=== PATIENT | male | born 1965 | race Caucasian/White ===

== ENCOUNTER 2017-10-12 08:08 | Inpatient (IN) | payer OTHER ==
[2017-10-12] VITALS (8 sets, daily range): BP systolic 141–188; BP diastolic 74–98
[~2017-10-12] VITALS: Ht 177.8 cm; Wt 81.6 kg
[~2017-10-12 08:08] MED LIST: ALPRAZOLAM0.5 M4 PO; ATIVAN1 M1 PO; DOXYCYCLINE HY100 M2 PO; FOLIC ACID1 M1 PO; NALTREXONE HCL50 M1 PO; ONE DAILY MULT1 EAC2 PO; VITAMIN B-1100 MG PO
--- NOTE | 2017-10-12 08:37 | ED PSYCHIATRIC COMPLAINT ---
History of Present Illness General Chief Complaint: General Adult Stated Complaint: XANAX WITHDRAWAL, LOST MEDS Source: patient, old records Exam Limitations: no limitations Vital Signs & Intake/Output Vital Signs & Intake/Output Vital Signs Date Time Temp Pulse Resp B/P B/P Pulse O2 O2 Flow FiO2 Mean Ox Delivery Rate 10/12 1435 90 18 150/84 10/12 1430 90 18 150/84 96 Room Air 10/12 1318 96 18 155/83 10/12 1314 102 16 155/83 98 Room Air 10/12 1158 98 Room Air 10/12 1148 97.0 96 18 158/74 10/12 1147 97.0 96 18 158/79 97 Room Air 10/12 1045 98.0 74 18 154/74 99 Room Air 10/12 1044 98.3 87 18 154/79 10/12 0840 95.9 104 20 188/98 10/12 0826 99 Room Air 10/12 0811 95.9 104 20 188/98 97 Allergies Coded Allergies: No Known Allergies (05/12/17) Reconcile Medications Alprazolam 0.5 MG TABLET 1 TAB PO TID ANXIETY (Reported) Triage Note: PT COMES TO ER REQUESTING ETOH DETOX, STATES THAT HIS LAST DRINK WAS YESTERDAY , DRINKS BEER, STATES THAT HE HAS HISTORY OF WITHDRAWAL SEIZURES. ALSO STATES THAT HE NEEDS XANAX, HIS WAS LOST AT HOTEL OVER A WEEK AGO, TOOK 0.5 MG TID AND HAS NOT HAD IN OVER A WEEK, STATES THAT HE CALLED HIS PMD ABOUT XANAX AND HAD AN APPOINTMENT BUT COULDN'T MAKE IT THERE. DENIES SI/HI. Triage Nurses Notes Reviewed? yes Onset: Gradual Duration: day(s): Timing: recent history Severity: moderate HPI: 52-year-old male with history of anxiety and panic attacks, alcoholism presents to emergency department complaining of Xanax withdrawal. Patient states that for the past week he's been living in a hotel, he has not had any of his Which he typically takes daily. Patient states that his headaches was left in a storage unit she did not have access to and has been without this medication for 1 week. Because he was going through Xanax was withdrawal the patient self medicated with alcohol. Patient states that he typically drinks 30 beers per day. Yesterday the patient drank a few beers, his last drink was last night. Patient states he has been through alcohol detox in the past, he has required hospital admission for alcohol withdrawal. Patient states he has had "seizures of his hands" with hands lockup however no grand mal seizures that he knows of. Patient reports current chest pressure which she associates with his panic attack symptoms. Patient denies suicidal ideation, illicit drug use, recent fevers, chills. (July Lugo) Past History Travel History Traveled to [place] past 21 day No Medical History Any Pertinent Medical History? see below for history Neurological: NONE EENT: NONE Cardiovascular: NONE Respiratory: NONE Gastrointestinal: NONE Hepatic: NONE Renal: NONE Musculoskeletal: NONE Psychiatric: alcohol dependence, anxiety Endocrine: NONE Blood Disorders: NONE Cancer(s): NONE Other Medical Hx: Acne History of MRSA: No History of VRE: No History of CDIFF: No Surgical History Surgical History: none Psychosocial History Who do you live with Mother What is your primary language Bahamian Tobacco Use: Never used ETOH Use: alcoholic Illicit Drug Use: denies illicit drug use Family History Hx Contributory? No (July Lugo) Review of Systems Review of Systems Constitutional: Reports: no symptoms. EENTM: Reports: no symptoms. Respiratory: Reports: no symptoms. Cardiovascular: Reports: see HPI. GI: Reports: no symptoms. Genitourinary: Reports: no symptoms. Musculoskeletal: Reports: no symptoms. Skin: Reports: no symptoms. Neurological/Psychological: Reports: see HPI. Hematologic/Endocrine: Reports: no symptoms. Immunologic/Allergic: Reports: no symptoms. All Other Systems: Reviewed and Negative (July Lugo) Physical Exam Physical Exam General Appearance: well developed/nourished, no apparent distress, alert, awake Head: atraumatic, normal appearance Eyes: Bilateral: normal appearance. Ears, Nose, Throat: hearing grossly normal Neck: normal inspection, supple, full range of motion Respiratory: normal breath sounds, no respiratory distress, lungs clear Cardiovascular: tachycardia Gastrointestinal: normal bowel sounds, soft, non-tender, no organomegaly Extremities: normal range of motion Neurological/Psychiatric: awake, alert, anxious, tremor of upper extremities Appearance/Memory/Insight: appropriate appearance, appropriate insight Behavoir/Eye Contact/Speech: cooperative, normal speech, good eye contact Thoughts/Hallucinations: normal thought pattern, no apparent hallucination Skin: intact, normal color, warm/dry SAD PERSONS Done? patient not suicidal ([place] SHAW,July Corral) Progress Differential Diagnosis: drug intoxication, drug overdose, drug withdrawal, electrolyte abnormality, ACS Plan of Care: Orders Procedure Date/time Status PHOSPHORUS 10/13 0600 Active MAGNESIUM 10/13 0600 Active HEPATIC FUNCTION PANEL 10/13 0600 Active BASIC ELECTROLYTES PLUS BUN&CR 10/13 0600 Active Regular Diet 10/12 L Complete Regular Diet 10/12 D Active Pathway - chart 10/12 1325 Active Pathway - chart 10/12 1320 Active Patient Data 10/12 1310 Active ED Holding Orders 10/12 1252 Active Admit to inpatient 10/12 1252 Active Vital Signs 10/12 1252 Active Code Status 10/12 1252 Active PHOSPHORUS 10/12 0857 Complete CIWA 10/12 0836 Active URINE DRUG SCREEN FOR ER ONLY 10/12 0836 Complete TROPONIN LEVEL 10/12 0836 Complete MAGNESIUM 10/12 0836 Complete ETHANOL 10/12 0836 Complete COMPREHENSIVE METABOLIC PANEL 10/12 0836 Complete CBC WITHOUT DIFFERENTIAL 10/12 0836 Complete EKG 10/12 0836 Active Intake & Output 10/12 0826 Active House Staff 10/12 UNK Active Lab Add-on Test 10/12 UNK Active VTE Mechanical Prophylaxis 10/12 UNK Active SOCIAL WORK CONSULT 10/12 UNK Active Current Medications Sig/Jackelyn Start time Last Medication Dose Stop Time Status Admin Enoxaparin Sodium 40 MG DAILY 10/13 1000 AC (Lovenox) Folic Acid 1 MG DAILY 10/13 1000 AC (Folic Acid) Multivitamins 1 TAB DAILY 10/13 1000 AC (Theragran Vitamins) Thiamine HCl 100 MG DAILY 10/13 1000 AC (Vitamin B1) Lorazepam 2 MG Q6 10/12 1800 AC (Ativan) Acetaminophen 650 MG Q6P PRN 10/12 1330 AC (Tylenol) Acetaminophen 1,000 MG Q6P PRN 10/12 1330 AC (Ofirmev) Cyanocobalamin/ 1 BAG ONCE ONE 10/12 1330 AC 10/12 Thiamine/Pyridoxine 10/12 2129 1530 (Vitamin in I.V.) Dextrose/Water 1,000 ML (D5W 1000) Hydromorphone HCl 0.4 MG Q6P PRN 10/12 1330 AC (Dilaudid) Lorazepam 2 MG Q6H 10/12 1330 CAN (Ativan) Lorazepam 0 Q1P PRN 10/12 1330 AC (Ativan) Magnesium Sulfate 1 GM Q2H 10/12 1315 AC 10/12 (Mag Sulfate in D5) 10/12 1714 1415 Dextrose/Water 100 ML (D5W) Magnesium Sulfate 1 GM Q4H 10/12 1300 CAN (Mag Sulfate in D5) 10/12 2059 Dextrose/Water 100 ML (D5W) Laboratory Tests 10/12/17 1127: Urine Opiates Screen < 100.00, Methadone Screen < 40, Barbiturate Screen < 60, Ur Phencyclidine Scrn < 6.00, Amphetamines Screen < 100, U Benzodiazepines Scrn < 85, Urine Cocaine Screen < 50, Urine Cannabis Screen 7.00 10/12/17 0857: Anion Gap 15, Estimated GFR > 60, BUN/Creatinine Ratio 7.1, Glucose 133 H, Calcium 9.8, Phosphorus 1.9 L, Magnesium 1.4 L, Total Bilirubin 2.3 H, AST 183 H, ALT 211 H, Alkaline Phosphatase 132 H, Troponin I < 0.01, Total Protein 8.2, Albumin 5.0, Globulin 3.2, Albumin/Globulin Ratio 1.6, CBC w Diff NO MAN DIFF REQ, RBC 5.04, MCV 97.2 H, MCH 33.8 H, RDW 15.3 H, MPV 8.1, Gran % 67.4, Lymphocytes % 19.2 L, Monocytes % 12.7 H, Eosinophils % 0.4, Basophils % 0.3, Absolute Granulocytes 3.3, Absolute Lymphocytes 0.9 L, Absolute Monocytes 0.6, Absolute Eosinophils 0, Absolute Basophils 0, PUBS MCHC 34.8, Serum Alcohol < 10.0 Patient with tremors on physical exam. He appears anxious. [facility] core of 19. Patient medicated with IV and PO Ativan. Given patient's insurance he requires prior authorization for hospital admission. Patient's EKG is in sinus rhythm, no acute ischemic changes, troponin negative. Low suspicion for acute coronary syndrome at this time. Patient reports resolution of chest pain following Ativan. Hypomagnesemia and hypokalemia and then blood work, Mg and K given here in the ED. Dr. Rehman discussed this patient with case management. Case management will obtain prior authorization from Medicaid prior to this patient's admission for alcohol withdrawal. 12:52 - Patient approved for admission via case management Dr. Rehman spoke with hospitalist regarding this patient's general medicine admission for alcohol detox. Patient is not a candidate for outpatient detox given elevated CIWA score. He requires inpatient hospital setting care. Initial ED EKG: sinus rhythm @73bpm, nonspecific ST changes (July Lugo) Departure Departure Disposition: STILL A PATIENT Condition: Stable Clinical Impression Primary Impression: Alcohol withdrawal Qualifiers: Complication of substance-induced condition: with unspecified complication Qualified Code: F10.239 - Alcohol dependence with withdrawal, unspecified Secondary Impressions: Alcoholism, Hypokalemia, Hypomagnesemia Referrals: Deo Solomon MD (PCP/Family) Departure Forms: Customer Survey General Discharge Information (July Lugo) Admission Note Spoke With: Castillo Foster MD Documentation of Exam: Documentation of any treatments & extenuating circumstances including Concerns Regarding Discharge (functional status, medication knowledge or non-compliance, living conditions, etc.) that warrant an admission rather than observation: [ Patient to be admitted medically for alcohol dependency and acute withdrawal. We'll need to follow the CIWA score closely and give Ativan as needed. Patient will need a social work consult for continued alcohol treatment upon discharge. Patient is at high risk of having a withdrawal seizure at this point.] PA/PULMONARY CARE NURSE Co-Sign Statement Statement: ED Attending supervision documentation- [X] I saw and evaluated the patient. I have also reviewed all the pertinent lab results and diagnostic results. I agree with the findings and the plan of care as documented in the PA's/PULMONARY CARE NURSE's documentation. [X] I have reviewed the ED Record and agree with the PA's/PULMONARY CARE NURSE's documentation. [] Additions or exceptions (if any) to the PAs/PULMONARY CARE NURSE's note and plan are summarized below: [See above note] (Sherie BRADEN,Conrado Alba)
[2017-10-12 09:12] LABS: ABSOLUTE BASOPHIL COUNT 0 /CUMM (0.0-0.2); ABSOLUTE EOSINOPHIL COUNT 0 /CUMM (0.0-0.7); ABSOLUTE GRANULOCYTE CT 3.3 /CUMM (1.4-6.5); ABSOLUTE LYMPH COUNT 0.9 /CUMM (1.2-3.4); ABSOLUTE MONOCYTE COUNT 0.6 /CUMM (0.10-0.60); BASOPHIL % 0.3 % (0.0-2.0); EOSINOPHIL % 0.4 % (0-5); GRANULOCYTE % 67.4 % (42.2-75.2); MEAN CORPUSCULAR HGB 33.8 PG (27.0-31.0); MEAN CORPUSCULAR HGB CONC 34.8 G/DL (33.0-37.0); MEAN CORPUSCULAR VOLUME 97.2 FL (80.0-94.0); MEAN PLATELET VOLUME 8.1 FL (7.4-10.4); PLATELET COUNT 192 /CUMM (130-400); RBC DISTRIBUTION WIDTH 15.3 % (11.5-14.5); RED BLOOD CELL CT 5.04 /CUMM (4.70-6.10); WHITE BLOOD CELL COUNT 4.9 /CUMM (4.8-10.8)
--- NOTE | 2017-10-12 13:14 | History & Physical ---
Twyla Pressley 10/12/17 1313: General Information and HPI MD Statement: I have seen and personally examined JESSY VERMA and documented this H&P. The patient is a 52 year old M who presented with a patient stated chief complaint of [Alcohol Withdrawl]. Source of Information: patient Exam Limitations: no limitations History of Present Illness: Mr. Verma is a 52-year-old male with PMH of anxiety/panic attacks, alcoholism presented to [facility] with chief complaint of Xanax withdrawl and alcohol dependence for the past week. Patient stated that he was living in a hotel without access to his daily Xanax for the past week, and he picked up drinking to counter his withdrawl. His daily alcohol consumption was around 30 beers/day. 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 Patient felt withdrawl with symptoms including muscle stiffness/hand tremors, and some chest pressures on/off without pain or SOB. Patient admitted some cough as well. Patient had hx of alcohol detox requiring hospital admission, and had history of some "seizures of his hands" with "lockup" but no grand mal seziure. Patient denied SI/HI. Patient denied past medical history of liver/gallbladder diseases. Patient denied fever/night sweat/weight change/insomnia, dietary/appetite change. Patient denied Palpitation/Abdominal pain, bowel movement/urinary abnormality, or other skin/musculoskeletal/neurological disorders. Allergies/Medications Allergies: Coded Allergies: No Known Allergies (05/12/17) Home Med list Alprazolam 0.5 MG TABLET 1 TAB PO TID ANXIETY (Reported) Past History Travel History Traveled to [place] past 21 day No Medical History Neurological: NONE EENT: NONE Cardiovascular: NONE Respiratory: NONE Gastrointestinal: NONE Hepatic: NONE Renal: NONE Musculoskeletal: NONE Psychiatric: alcohol dependence, anxiety Endocrine: NONE Blood Disorders: NONE Cancer(s): NONE Other Medical Hx: Acne History of MRSA: No History of VRE: No History of CDIFF: No Surgical History Surgical History: none Past Family/Social History Psychosocial History ETOH Use: alcoholic Illicit Drug Use: denies illicit drug use Review of Systems Review of Systems Constitutional: Reports: see HPI. Exam & Diagnostic Data Last 24 Hrs of Vital Signs/I&O Vital Signs Date Time Temp Pulse Resp B/P B/P Pulse O2 O2 Flow FiO2 Mean Ox Delivery Rate 10/12 1158 98 Room Air 10/12 1148 97.0 96 18 158/74 10/12 1147 97.0 96 18 158/79 97 Room Air 10/12 1045 98.0 74 18 154/74 99 Room Air 10/12 1044 98.3 87 18 154/79 10/12 0840 95.9 104 20 188/98 10/12 0826 99 Room Air 10/12 0811 95.9 104 20 188/98 97 Intake & Output 10/12 1600 10/12 0800 10/12 0000 Intake Total 0 Output Total Balance 0 Intake, Oral 0 Patient 81.647 kg Weight Physical Exam General Appearance Alert, Oriented X3, Cooperative, No Acute Distress Skin No Rashes, No Breakdown, No Significant Lesion HEENT Atraumatic, PERRLA, EOMI Neck Supple, No JVD Cardiovascular Regular Rate Lungs Clear to Auscultation, Normal Air Movement Abdomen Normal Bowel Sounds, Soft, No Tenderness, No Hepatospenomegaly Neurological Normal Speech, Strength at 5/5 X4 Ext Extremities No Edema, Normal Pulses, No tremors Last 24 Hrs of Labs/Anam: Laboratory Tests 10/12/17 1127: Urine Opiates Screen < 100.00, Methadone Screen < 40, Barbiturate Screen < 60, Ur Phencyclidine Scrn < 6.00, Amphetamines Screen < 100, U Benzodiazepines Scrn < 85, Urine Cocaine Screen < 50, Urine Cannabis Screen 7.00 10/12/17 0857: Anion Gap 15, Estimated GFR > 60, BUN/Creatinine Ratio 7.1, Glucose 133 H, Calcium 9.8, Phosphorus Pending, Magnesium 1.4 L, Total Bilirubin 2.3 H, AST 183 H, ALT 211 H, Alkaline Phosphatase 132 H, Troponin I < 0.01, Total Protein 8.2, Albumin 5.0, Globulin 3.2, Albumin/Globulin Ratio 1.6, CBC w Diff NO MAN DIFF REQ, RBC 5.04, MCV 97.2 H, MCH 33.8 H, RDW 15.3 H, MPV 8.1, Gran % 67.4, Lymphocytes % 19.2 L, Monocytes % 12.7 H, Eosinophils % 0.4, Basophils % 0.3, Absolute Granulocytes 3.3, Absolute Lymphocytes 0.9 L, Absolute Monocytes 0.6, Absolute Eosinophils 0, Absolute Basophils 0, PUBS MCHC 34.8, Serum Alcohol < 10.0 Assessment/Plan Assessment: Mr. Verma is a 52-year-old male with PMH of anxiety/panic attacks, alcoholism presented to [facility] with chief complaint of Xanax withdrawl and alcohol dependence for the past week. Patient stated that he was living in a hotel without access to his daily Xanax for the past week, and he picked up drinking to counter his withdrawl. His daily alcohol consumption was around 30 beers/day. 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 Patient felt withdrawl with symptoms including muscle stiffness/hand tremors, and some chest pressures on/off without pain or SOB. Patient admitted some cough as well. During our clinical interaction, patient felt generally improved from alcohol withdrawl symptoms and denied any hand tremors/muscle stiffness/Nausea, admitted some mild chest pressure but otherwise no specific complaint. ER Course: Objective Vitals: Stable afebrile, with BP 155/83, Physical exam -Gen.: AO x3, cooperative, no distress, -HEENT: NCAT, PERRL, EOMI, anicteric sclera, moist mucous membranes -Neck: Supple, no JVD, trachea midline, mild accessory respiratory muscle use -Cardio: Normal S1/S2 without significant murmurs/gallops/rubs -Pulmonary: grossly normal air movement w/ clear auscultation -Abdomen: Soft, nontender, nondistended, bowel sounds intact -Extremity: Normal pulses/capillary refill, no cyanosis/clubbing/edema, no hand tremor on presentation Labs/imaging/EKG/interventions -CBC: WNL -BMP: Na 136, K3.4, Cr 0.7, Glu 133, AST/ALT: 183/211, AlkPhos 132, phos 1.9, mag 1.4otherwise unremarkable -Misc: Troponin -ve. Serum alcohol -ve -EKG: Normal sinus rhythm without significant ST-T abnormalities. -Interventions in ER: K-dur Zofran Ativan 2mg PO x1, IV x 1 CIWA on admission was 19 -> 5 -> 4 -> 1 Problem list #Alcohol withdrawal #Transaminitis likely 2/2 alcohol consumption #Hypokalemia/Hypophosphatemia/Hypomagnesemia 2/2 alcohol consumption Plan - Admit to general medicine - Replete K, Mg, BEP daily - Ativan PO 2mg q6 + CIWA protocol - Thiamine/B12/Folic acid supplements - Pain control w/ tylenol/dilaudid, if needed. DVT prophylaxis Lovenox + ALPS Regular Diet Full Code As Ranked By This Provider Problem List: 1. Alcohol withdrawal syndrome Qualifiers Complication of substance-induced condition: with unspecified complication Qualified Code: F10.239 - Alcohol dependence with withdrawal, unspecified 2. Hypokalemia Core Measures/Misc (06/25) Acute Coronary Syndrome ACS Diagnosis: No Congestive Heart Failure Congestive Heart Failure Diagnosis No Cerebrovascular Accident CVA/TIA Diagnosis: No VTE (View Protocol) VTE Risk Factors Age>40 No Mechanical VTE Prophylaxis d/t N/A MechProphylax Ordered No VTE Pharm Prophylaxis d/t NA PharmProphylax ordered Sepsis (View protocol) Sepsis Present: No CarlotaJohn 10/12/17 1426: Attending MD Review Statement Attending Statement Attending MD Statement: examined this patient, discuss w/resident/PA/FLORAL DEPARTMENT SPECIALIST, agreed w/resident/PA/FLORAL DEPARTMENT SPECIALIST, discussed with family, reviewed EMR data (avail), discussed with nursing, discussed with case mgmt, reviewed images, amended to note Attending Assessment/Plan: 52-year-old male with history of anxiety and panic attacks, alcoholism presents to emergency department complaining of Xanax withdrawal. Patient poor historian, appears to have tremors. Patient is admit to inpatient medical services for alcohol withdrawal. LUKAS <10. Utox negative. Patient has hypokalemia and need replacement and recheck electrolytes. Start CIWA protocol and Ativan as per CIWA. Thiamine and folic acid daily. Alcohol abuse and dependence. Nicotine dependence- smokes cigars, smoking cessation advise. Angus Casey 10/12/17 1515: Resident Review Statement Resident Statement: examined this patient, discussed with software engineer intern, agreed with software engineer intern, discussed with family, discussed with case mgmt, reviewed images, amended to note Other Findings: is 52-year-old male with past medical history of alcohol dependence, anxiety, multiple admissions for alcohol detox presented to emergency department with symptoms of alcohol withdrawal and he was requesting detox. Patient reports that he has been drinking beer heavily every day up to 24 beer per day, with sometimes 1 shot of vodka, last drink was yesterday. He also not on his medication Xanax for the last week, he came into emergency department with shakiness, heart racing, sweating, twitching movement of his right arm, no seizure and no loss of consciousness. Assessment: #Alcohol withdrawal #Anxiety Plan: - Admit to general medicine - Ativan 1 mg by mouth 8 hours - When necessary Ativan according to CIWA score - Gentle hydration - By mouth thiamine and folic acid - Will check CBC, BMP, magnesium, phosphorus - daycare worker consult DVT prophylaxis with SCDs and Lovenox He is a full code
[2017-10-13] VITALS (9 sets, daily range): BP systolic 129–157; BP diastolic 64–90
--- NOTE | 2017-10-13 08:41 | PN- Housestaff ---
HuanTwyla 10/13/17 0839: Subjective Follow-up For: Alcohol Detox Subjective: No overnight event. Patient felt hand tremors again overnight however not much agitation. Patient felt cold with only 1 blanket. Review of Systems Constitutional: Reports: see HPI. Objective Last 24 Hrs of Vital Signs/I&O Vital Signs Date Time Temp Pulse Resp B/P B/P Pulse O2 O2 Flow FiO2 Mean Ox Delivery Rate 10/13 817 97.7 82 18 147/71 10/13 0817 97.7 82 18 147/71 98 Room Air 10/13 0607 97.5 75 18 131/71 98 Room Air / 0532 98.1 88 18 157/79 / 0532 98.1 88 18 157/79 98 Room Air / 0340 97.8 91 18 157/78 / 0340 97.8 91 18 157/78 100 Room Air / 0140 97.4 78 18 139/86 /05 0140 97.4 78 18 139/86 99 Room Air / 2311 98.8 76 18 141/87 98 Room Air / 2310 98.8 76 18 141/87 /2007 98.5 101 20 159/82 01/04 1935 98.5 101 19 159/82 97 Room Air / 1801 158/74 /04 1712 98.0 97 19 152/78 99 Room Air / 1435 90 18 150/84 /04 1430 90 18 150/84 96 Room Air / 1318 96 18 155/83 /04 1314 102 16 155/83 98 Room Air / 1158 98 Room Air / 1148 97.0 96 18 158/74 /04 1147 97.0 96 18 158/79 97 Room Air / 1045 98.0 74 18 154/74 99 Room Air / 1044 98.3 87 18 154/79 / 0840 95.9 104 20 188/98 Physical Exam General Appearance: Alert, Oriented X3, Cooperative, No Acute Distress Cardiovascular: Regular Rate Lungs: Clear to Auscultation, Normal Air Movement Abdomen: Normal Bowel Sounds, Soft, No Tenderness Neurological: Normal Speech, Strength at 5/5 X4 Ext Extremities: No Edema, Normal Pulses Current Medications: Current Medications Sig/Jackelyn Start time Last Medication Dose Route Stop Time Status Admin Acetaminophen 650 MG Q6P PRN 10/12 1330 AC PO Acetaminophen 1,000 MG Q6P PRN 10/12 1330 AC IV Cyanocobalamin/ 1 BAG ONCE ONE 10/12 1330 DC 10/12 Thiamine/Pyridoxine IV 10/12 2129 1530 Dextrose/Water 1,000 ML Enoxaparin Sodium 40 MG DAILY 10/13 1000 AC SC Folic Acid 1 MG DAILY 10/13 1000 AC PO Hydromorphone HCl 0.4 MG Q6P PRN 10/12 1330 AC IV Lorazepam 0 .STK-MED ONE 10/13 0545 DC PO Lorazepam 0 .STK-MED ONE 10/12 2306 DC PO Lorazepam 0 .STK-MED ONE 10/12 202 DC .ROUTE Lorazepam 0 .STK-MED ONE 10/12 1807 DC PO Lorazepam 2 MG Q6 10/12 1800 AC 10/13 PO 0543 Lorazepam 2 MG Q6H 10/12 1330 CAN IV Lorazepam 0 Q1P PRN 10/12 1330 AC 10/12 IV 2007 Lorazepam 2 MG ONE ONE 10/12 0900 DC 10/12 IV 10/12 0901 0853 Lorazepam 2 MG ONCE ONE 10/12 0900 DC 10/12 PO 10/12 0901 0853 Lorazepam 0 .STK-MED ONE 10/12 0852 DC PO Lorazepam 0 .STK-MED ONE 10/12 0852 DC .ROUTE Magnesium Sulfate 1 GM Q2H 10/12 1315 DC 10/12 Dextrose/Water 100 ML IV 10/12 1714 1415 Magnesium Sulfate 0 .STK-MED ONE 10/12 1304 DC .ROUTE Magnesium Sulfate 1 GM Q4H 10/12 1300 CAN Dextrose/Water 100 ML IV 10/12 2059 Multivitamins 1 TAB DAILY 10/13 1000 AC PO Ondansetron HCl 4 MG ONCE ONE 10/12 0900 DC IV 10/12 0901 Phosphate 250 MG PC AND AT BEDTIME 10/12 2100 AC 10/12 PO 2309 Potassium Chloride 0 .STK-MED ONE 10/13 0757 DC PO Potassium Chloride 40 MEQ ONCE ONE 10/13 0715 DC 10/13 PO 10/13 0716 0804 Potassium Chloride 0 .STK-MED ONE 10/12 2305 DC PO Potassium Chloride 20 MEQ ONCE ONE 10/12 1944 DC 10/12 PO 10/12 194 2309 Potassium Chloride 0 .STK-MED ONE 10/12 1304 DC PO Potassium Chloride 40 MEQ ONCE ONE 10/12 1300 DC 10/12 PO 10/12 1301 1310 Thiamine HCl 100 MG DAILY 10/13 1000 AC PO Last 24 Hrs of Lab/Anam Results Last 24 Hrs of Labs/Mics: Laboratory Tests 10/13/17 0806: PT 11.0, INR 1.05 10/13/17 0605: Anion Gap 10, Estimated GFR > 60, BUN/Creatinine Ratio 15.0, Phosphorus 4.0, Magnesium 2.1, Total Bilirubin 2.0 H, Direct Bilirubin 0.4, AST 140 H, ALT 178 H, Alkaline Phosphatase 93, Total Protein 7.0, Albumin 4.1 10/12/17 1127: Urine Opiates Screen < 100.00, Methadone Screen < 40, Barbiturate Screen < 60, Ur Phencyclidine Scrn < 6.00, Amphetamines Screen < 100, U Benzodiazepines Scrn < 85, Urine Cocaine Screen < 50, Urine Cannabis Screen 7.00 10/12/17 0857: Anion Gap 15, Estimated GFR > 60, BUN/Creatinine Ratio 7.1, Glucose 133 H, Calcium 9.8, Phosphorus 1.9 L, Magnesium 1.4 L, Total Bilirubin 2.3 H, AST 183 H, ALT 211 H, Alkaline Phosphatase 132 H, Troponin I < 0.01, Total Protein 8.2, Albumin 5.0, Globulin 3.2, Albumin/Globulin Ratio 1.6, CBC w Diff NO MAN DIFF REQ, RBC 5.04, MCV 97.2 H, MCH 33.8 H, RDW 15.3 H, MPV 8.1, Gran % 67.4, Lymphocytes % 19.2 L, Monocytes % 12.7 H, Eosinophils % 0.4, Basophils % 0.3, Absolute Granulocytes 3.3, Absolute Lymphocytes 0.9 L, Absolute Monocytes 0.6, Absolute Eosinophils 0, Absolute Basophils 0, PUBS MCHC 34.8, Serum Alcohol < 10.0 Assessment/Plan Assessment: Mr. Verma is a 52-year-old male with PMH of anxiety/panic attacks, alcoholism presented to [facility] with chief complaint of Xanax withdrawl and alcohol dependence for the past week. Patient stated that he was living in a hotel without access to his daily Xanax for the past week, and he picked up drinking to counter his withdrawl. His daily alcohol consumption was around 30 beers/day. 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 Patient felt withdrawl with symptoms including muscle stiffness/hand tremors, and some chest pressures on/off without pain or SOB. Patient admitted some cough as well. During our clinical interaction, patient felt generally improved from alcohol withdrawl symptoms and denied any hand tremors/muscle stiffness/Nausea, admitted some mild chest pressure but otherwise no specific complaint. ER Course: Objective Vitals: Stable afebrile, with BP 155/83, Physical exam -Gen.: AO x3, cooperative, no distress, -HEENT: NCAT, PERRL, EOMI, anicteric sclera, moist mucous membranes -Neck: Supple, no JVD, trachea midline, mild accessory respiratory muscle use -Cardio: Normal S1/S2 without significant murmurs/gallops/rubs -Pulmonary: grossly normal air movement w/ clear auscultation -Abdomen: Soft, nontender, nondistended, bowel sounds intact -Extremity: Normal pulses/capillary refill, no cyanosis/clubbing/edema, no hand tremor on presentation Labs/imaging/EKG/interventions -CBC: WNL -BMP: Na 136, K3.4, Cr 0.7, Glu 133, AST/ALT: 183/211, AlkPhos 132, phos 1.9, mag 1.4otherwise unremarkable -Misc: Troponin -ve. Serum alcohol -ve -EKG: Normal sinus rhythm without significant ST-T abnormalities. -Interventions in ER: K-dur Zofran Ativan 2mg PO x1, IV x 1 CIWA on admission was 19 -> 5 -> 4 -> 1 Problem list #Alcohol withdrawal #Transaminitis likely 2/2 alcohol consumption #Hypokalemia/Hypophosphatemia/Hypomagnesemia 2/2 alcohol consumption Plan - K repleted to 3.9, Phos to 4.0, Mg repleted to 2.1 on latest lab. Continue monitor - AST/ALT 183/211 trended down to 140/178 on latest lab. Continue monitor - Ativan PO 1.5mg q6 + CIWA protocol. Continue taper as patient improves. - Thiamine/B12/Folic acid supplements - Pain control w/ tylenol/dilaudid, if needed. - Pending social work consult. DVT prophylaxis Lovenox + ALPS Regular Diet Full Code Problem List: 1. Hypomagnesemia 2. Hypokalemia 3. Alcoholism 4. Alcohol withdrawal syndrome Pain Ratin Pain Location: NA Pain Goal: Remain pain free Pain Plan: see AP Tomorrow's Labs & Rationales: CBC/BEP John Van 10/13/17 1223: Attending MD Review Statement Attending Statement Attending MD Statement: examined this patient, discuss w/resident/PA/BRIDGE RIGGER, agreed w/resident/PA/BRIDGE RIGGER, discussed with family, reviewed EMR data (avail), discussed with nursing, discussed with case mgmt, reviewed images, amended to note Attending Assessment/Plan: 52-year-old male with history of anxiety and panic attacks, alcoholism presents to emergency department complaining of Xanax withdrawal. Patient poor historian, appears to have tremors. Patient is admit to inpatient medical services for alcohol withdrawal. LUKAS <10. Utox negative. Patient has hypokalemia which is replaced. c/w CIWA protocol and Ativan as per CIWA. Taper as per CIWA. Thiamine and folic acid daily for Alcohol abuse and dependence. Nicotine dependence- smokes cigars, smoking cessation advise. and [facility] eval.
--- NOTE | 2017-10-13 15:29 | Patient Discharge Instructions ---
Discharge Instructions General Discharge Information You were seen/treated for: #Alcohol withdrawal #Transaminitis likely 2/2 alcohol consumption #Hypokalemia/Hypophosphatemia/Hypomagnesemia 2/2 alcohol consumption Special Instructions: - Please follow up with your primary care physician within 1-2 week of discharge. Inform your primary care physician of this admission to [facility]. - Continue your current medications per discharge instructions. - Please watch for these problems: Fever, Chills, Nausea, Vomiting, Shortness of Breath, Productive Cough, Chest Pain/Discomfort, Abdominal Pain, Active Bleeding or Bloody urine/stool. Diet Continue normal diet: Yes Activity Full Activity/No Limits: Yes Acute Coronary Syndrome Inclusion Criteria At DC or during hospital stay patient has or had the following: ACS DIAGNOSIS No Discharge Core Measures Meds if any: Prescribed or Continued at Discharge Meds if any: NOT Prescribed or Continued at Discharge Congestive Heart Failure Inclusion Criteria At DC or during hospital stay patient has or had the following: CHF DIAGNOSIS No Discharge Core Measures Meds if any: Prescribed or Continued at Discharge Meds if any: NOT Prescribed or Continued at Discharge Cerebrovascular accident Inclusion Criteria At DC or during hospital stay patient has or had the following: CVA/TIA Diagnosis No Discharge Core Measures Meds if any: Prescribed or Continued at Discharge Meds if any: NOT Prescribed or Continued at Discharge Venous thromboembolism Inclusion Criteria VTE Diagnosis No VTE Type NONE VTE Confirmed by (Test) NONE Discharge Core Measures - Per Current guidelines, there needs to be overlap - treatment for the first 5 days of Warfarin therapy. - If discharged on Warfarin prior to 5 days of - overlap therapy, the patient will need to be - assessed for post discharge needs including - *Post discharge parental anticoagulation - *Warfarin and/or parental anticoagulation education - *Follow up date to check INR post discharge At least 5 days overlap therapy as Inpatient No Meds if any: Prescribed or Continued at Discharge Note: Overlap Therapy is Warfarin and Anticoagulant Meds if any: NOT Prescribed or Continued at Discharge
--- NOTE | 2017-10-13 15:31 | Discharge Summary ---
Visit Information Visit Dates Admission Date: 10/12/17 Discharge Date: 10/17/2017 Hospital Course Course Attending Physician: John Van MD Primary Care Physician: Juanito BRADEN,Deo [facility] Course: Mr. Verma is a 52-year-old male with PMH of anxiety/panic attacks, alcoholism presented to [place] [facility] with chief complaint of Xanax withdrawl and alcohol dependence for the past week. Patient stated that he was living in a hotel without access to his daily Xanax for the past week, and he picked up drinking to counter his withdrawl. His daily alcohol consumption was around 30 beers/day. 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 Patient felt withdrawl with symptoms including muscle stiffness/hand tremors, and some chest pressures on/off without pain or SOB. Patient admitted some cough as well. During our clinical interaction, patient felt generally improved from alcohol withdrawl symptoms and denied any hand tremors/muscle stiffness/Nausea, admitted some mild chest pressure but otherwise no specific complaint. ER Course: Objective Vitals: Stable afebrile, with BP 155/83, Physical exam -Gen.: AO x3, cooperative, no distress, -HEENT: NCAT, PERRL, EOMI, anicteric sclera, moist mucous membranes -Neck: Supple, no JVD, trachea midline, mild accessory respiratory muscle use -Cardio: Normal S1/S2 without significant murmurs/gallops/rubs -Pulmonary: grossly normal air movement w/ clear auscultation -Abdomen: Soft, nontender, nondistended, bowel sounds intact -Extremity: Normal pulses/capillary refill, no cyanosis/clubbing/edema, no hand tremor on presentation Labs/imaging/EKG/interventions -CBC: WNL -BMP: Na 136, K3.4, Cr 0.7, Glu 133, AST/ALT: 183/211, AlkPhos 132, phos 1.9, mag 1.4otherwise unremarkable -Misc: Troponin -ve. Serum alcohol -ve -EKG: Normal sinus rhythm without significant ST-T abnormalities. -Interventions in ER: K-dur Zofran Ativan 2mg PO x1, IV x 1 CIWA on admission was 19 -> 5 -> 4 -> 1 Problem list #Alcohol withdrawal Upon admission, patient was started on Ativan oral 2mg every 6 hours + IV ativan per CIWA protocol, along with Thiamine/B12/Folic acid supplements. Ativan was tapered along the detox course without complications. Patient completed the full course of ativan and was discharged. Patient was advised to follow up with [facility] for PCP evaluation of outpatient Xanax. Psych recommended outpatient psychotherapy per patient's convenience. #Transaminitis likely 2/2 alcohol consumption Upon admission, patient's AST/ALT 183/211 trended down to 115/217 on latest lab. Patient had no symptoms of abdominal pain or PMH of gastrointestinal disorders. Patient was counselled on alcohol cessation. #Hypokalemia/Hypophosphatemia/Hypomagnesemia 2/2 alcohol consumption Patient's electrolytes were repleted with K and Mg supplements prior discharge. DVT Prophylaxis Lovenox + ALPS Regular Diet Full Code Allergies: Coded Allergies: No Known Allergies (05/12/17) Pertinent Lab Results: Laboratory Tests 10/17 10/17 0934 0725 Chemistry Sodium (137 - 145 mmol/L) 138 Potassium (3.5 - 5.1 mmol/L) 4.0 Chloride (98 - 107 mmol/L) 104 Carbon Dioxide (22 - 30 mmol/L) 23 Anion Gap (5 - 16) 11 BUN (9 - 20 mg/dL) 11 Creatinine (0.7 - 1.2 mg/dL) 0.6 L Estimated GFR (>60 ml/min) > 60 BUN/Creatinine Ratio (7 - 25 %) 18.3 Total Bilirubin (0.2 - 1.3 mg/dL) 0.7 Direct Bilirubin (< 0.4 mg/dL) 0.2 AST (17 - 59 U/L) 115 H ALT (21 - 72 U/L) 217 H Alkaline Phosphatase (< 127 U/L) 83 Total Protein (6.3 - 8.2 g/dL) 6.8 Albumin (3.5 - 5.0 g/dL) 4.0 Hematology CBC w Diff NO MAN DIFF REQ WBC (4.8 - 10.8 /CUMM) 9.5 RBC (4.70 - 6.10 /CUMM) 4.30 L Hgb (14.0 - 18.0 G/DL) 14.6 Hct (42 - 52 %) 42.5 MCV (80.0 - 94.0 FL) 98.8 H MCH (27.0 - 31.0 PG) 34.0 H RDW (11.5 - 14.5 %) 14.9 H Plt Count (130 - 400 /CUMM) 166 MPV (7.4 - 10.4 FL) 9.6 Gran % (42.2 - 75.2 %) 73.1 Lymphocytes % (20.5 - 51.1 %) 14.5 L Monocytes % (1.7 - 9.3 %) 9.7 H Eosinophils % (0 - 5 %) 2.2 Basophils % (0.0 - 2.0 %) 0.5 Absolute Granulocytes (1.4 - 6.5 /CUMM) 7.0 H Absolute Lymphocytes (1.2 - 3.4 /CUMM) 1.4 Absolute Monocytes (0.10 - 0.60 /CUMM) 0.9 H Absolute Eosinophils (0.0 - 0.7 /CUMM) 0.2 Absolute Basophils (0.0 - 0.2 /CUMM) 0 PUBS MCHC (33.0 - 37.0 G/DL) 34.4 Disposition Summary Disposition Principal Diagnosis: #Alcohol withdrawal #Xanax withdrawal #Transaminitis likely 2/2 alcohol consumption #Hypokalemia/Hypophosphatemia/Hypomagnesemia 2/2 alcohol consumption Additional Diagnosis: as above Discharge Disposition: home or self care Discharge Instructions General Discharge Information Code Status: Full Code Patient's Diet: Regular Patient's Activity: as tolerated Follow-Up Instructions/Appts: - Please follow up with your primary care physician within 1-2 week of discharge. Inform your primary care physician of this admission to [facility]. - Continue your current medications per discharge instructions. - Please watch for these problems: Fever, Chills, Nausea, Vomiting, Shortness of Breath, Productive Cough, Chest Pain/Discomfort, Abdominal Pain, Active Bleeding or Bloody urine/stool. Medications at Discharge Discharge Medications: Stop taking the following medications: Alprazolam (Alprazolam) 0.5 MG TABLET ORAL THREE TIMES DAILY Qty = 90 Copies To: Juanito BRADEN,Deo; Kalyn BRADEN,Conrado Reich Attending MD Review Statement Documenting Attending: Carlota BRADEN,John
[2017-10-14 02:00] VITALS: BP 140/80
[2017-10-14 06:00] VITALS: BP 140/82
[2017-10-14 06:23] VITALS: BP 140/82
[2017-10-14 08:26] LABS: ABSOLUTE BASOPHIL COUNT 0 /CUMM (0.0-0.2); ABSOLUTE EOSINOPHIL COUNT 0.2 /CUMM (0.0-0.7); ABSOLUTE GRANULOCYTE CT 5.3 /CUMM (1.4-6.5); ABSOLUTE LYMPH COUNT 1.5 /CUMM (1.2-3.4); ABSOLUTE MONOCYTE COUNT 0.4 /CUMM (0.10-0.60); BASOPHIL % 0.5 % (0.0-2.0); EOSINOPHIL % 2.8 % (0-5); GRANULOCYTE % 71.3 % (42.2-75.2); HEMATOCRIT 44.5 % (42-52); MEAN CORPUSCULAR HGB 33.8 PG (27.0-31.0); MEAN CORPUSCULAR HGB CONC 34.3 G/DL (33.0-37.0); MEAN CORPUSCULAR VOLUME 98.3 FL (80.0-94.0); MEAN PLATELET VOLUME 8.8 FL (7.4-10.4); PLATELET COUNT 160 /CUMM (130-400); RBC DISTRIBUTION WIDTH 14.8 % (11.5-14.5); RED BLOOD CELL CT 4.53 /CUMM (4.70-6.10)
[2017-10-14 09:17] LABS: WHITE BLOOD CELL COUNT 7.4 /CUMM (4.8-10.8)
--- NOTE | 2017-10-14 10:28 | PN- Housestaff ---
Romero BRADEN,[facility] 10/14/17 1027: Subjective Follow-up For: Xanax withdrawal Subjective: No acute events overnight. Patient still states that he is having some shaking. Still feels fuzzy and continues to have some anxiety . Review of Systems Constitutional: Reports: see HPI (anxiety,fuzzy, shaking). Cardiovascular: Reports: no symptoms. Respiratory: Reports: no symptoms. Gastrointestinal: Reports: no symptoms. Genitourinary: Reports: no symptoms. Musculoskeletal: Reports: no symptoms. Neurological/Psychological: Reports: see HPI, anxiety. Objective Last 24 Hrs of Vital Signs/I&O Vital Signs Date Time Temp Pulse Resp B/P B/P Pulse O2 O2 Flow FiO2 Mean Ox Delivery Rate 10/14 1341 97.4 78 20 120/80 100 Room Air 10/14 0623 98.1 68 20 140/82 99 Room Air 10/14 0600 98.1 68 20 140/82 10/14 0200 98.0 70 20 140/80 10/13 2200 98.0 70 20 140/90 10/13 2000 97.9 74 20 140/90 10/13 1938 97.9 74 20 140/90 97 05 1747 Room Air 10/13 1720 98.5 82 16 125/78 98 Room Air 10/13 1428 98.6 83 98 129/64 10/13 1428 98.6 84 18 129/64 98 Room Air Intake & Output 10/14 1600 10/14 0800 10/14 0000 Intake Total 410 610 Output Total Balance 410 610 Intake, IV 10 10 Intake, Oral 400 600 Physical Exam General Appearance: Alert, Oriented X3, Cooperative, No Acute Distress Skin Temp/Moisture Exam: Warm/Dry Cardiovascular: Regular Rate, Normal S1, Normal S2 Lungs: Clear to Auscultation, decreased air movement due to low respiratory effort Abdomen: Normal Bowel Sounds, Soft, No Tenderness Vascular: 2+ radial pulses Current Medications: Current Medications Sig/Jackelyn Start time Last Medication Dose Route Stop Time Status Admin Acetaminophen 650 MG Q6P PRN 10/12 1330 AC PO Acetaminophen 1,000 MG Q6P PRN 10/12 1330 AC IV Enoxaparin Sodium 40 MG DAILY 10/13 1000 AC 10/14 SC 0758 Folic Acid 1 MG DAILY 10/13 1000 AC 10/14 PO 0758 Hydromorphone HCl 0.4 MG Q6P PRN 10/12 1330 AC IV Lorazepam 1.5 MG Q8 10/14 1400 AC 10/14 PO 1343 Lorazepam 0 .STK-MED ONE 10/13 1822 DC PO Lorazepam 1.5 MG Q6 10/13 1200 DC 10/14 PO 0523 Lorazepam 0 Q1P PRN 10/12 1330 AC 10/12 IV 2007 Multivitamins 1 TAB DAILY 10/13 1000 AC 10/14 PO 0758 Phosphate 250 MG PC AND AT BEDTIME 10/12 2100 AC 10/14 PO 1342 Thiamine HCl 100 MG DAILY 10/13 1000 AC 10/14 PO 0758 Last 24 Hrs of Lab/Anam Results Last 24 Hrs of Labs/Mics: Laboratory Tests 10/14/17 0730: Anion Gap 10, Estimated GFR > 60, BUN/Creatinine Ratio 18.3, Total Bilirubin 1.2 , Direct Bilirubin 0.4, AST 122 H, ALT 164 H, Alkaline Phosphatase 77, Total Protein 6.9, Albumin 3.9, CBC w Diff NO MAN DIFF REQ, RBC 4.53 L, MCV 98.3 H, MCH 33.8 H, RDW 14.8 H, MPV 8.8, Gran % 71.3, Lymphocytes % 20.2 L, Monocytes % 5.2, Eosinophils % 2.8, Basophils % 0.5, Absolute Granulocytes 5.3, Absolute Lymphocytes 1.5, Absolute Monocytes 0.4, Absolute Eosinophils 0.2, Absolute Basophils 0, PUBS MCHC 34.3 Assessment/Plan Assessment: Mr. Verma is a 52-year-old male with PMH of anxiety/panic attacks, alcoholism presented to [place] ER with chief complaint of Xanax withdrawl and alcohol dependence for the past week. Problem list #Alcohol withdrawal #Transaminitis likely 2/2 alcohol consumption #Hypokalemia/Hypophosphatemia/Hypomagnesemia 2/2 alcohol consumption Plan - AST/ALT 183/211 trended down to 122/164 on latest lab. Continue monitor - Ativan PO 1.5mg q8 + CIWA protocol. Continue taper as patient improves. - Thiamine/B12/Folic acid supplements - Pain control w/ tylenol/dilaudid, if needed. - Pending social work consult. DVT prophylaxis Lovenox + ALPS Regular Diet Full Code Problem List: 1. Alcohol abuse 2. Benzodiazepine abuse Pain Ratin Pain Location: none Pain Goal: Pain 4 or less Pain Plan: pain pathway Tomorrow's Labs & Rationales: cbc bep lft John Van 10/14/17 1448: Attending MD Review Statement Attending Statement Attending MD Statement: examined this patient, discuss w/resident/PA/BOX PULLER, agreed w/resident/PA/BOX PULLER, discussed with family, reviewed EMR data (avail), discussed with nursing, discussed with case mgmt, reviewed images, amended to note Attending Assessment/Plan: 52-year-old male with history of anxiety and panic attacks, alcoholism presents to emergency department complaining of Xanax withdrawal. His CIWA as per nursing. Patient poor historian, Patient is admit to inpatient medical services for alcohol withdrawal. LUKAS <10. Utox negative. Patient has hypokalemia which is replaced. c/w CIWA protocol and Ativan as per CIWA. Taper as per CIWA. Thiamine and folic acid daily for Alcohol abuse and dependence. Nicotine dependence- smokes cigars, smoking cessation advise. FIORELLA and lorie jiang.
[2017-10-14 13:41] VITALS: BP 120/80
[2017-10-14 22:00] VITALS: BP 140/80
[2017-10-14 22:11] VITALS: BP 140/80
[2017-10-15 02:00] VITALS: BP 130/80
[2017-10-15 06:00] VITALS: BP 120/74
[2017-10-15 06:24] VITALS: BP 120/76
[2017-10-15 09:29] LABS: ABSOLUTE BASOPHIL COUNT 0.1 /CUMM (0.0-0.2); ABSOLUTE EOSINOPHIL COUNT 0.2 /CUMM (0.0-0.7); ABSOLUTE GRANULOCYTE CT 5.8 /CUMM (1.4-6.5); ABSOLUTE LYMPH COUNT 1.5 /CUMM (1.2-3.4); ABSOLUTE MONOCYTE COUNT 0.6 /CUMM (0.10-0.60); BASOPHIL % 0.7 % (0.0-2.0); EOSINOPHIL % 2.8 % (0-5); GRANULOCYTE % 70.8 % (42.2-75.2); MEAN CORPUSCULAR HGB 33.7 PG (27.0-31.0); MEAN CORPUSCULAR HGB CONC 34.4 G/DL (33.0-37.0); MEAN CORPUSCULAR VOLUME 98.2 FL (80.0-94.0); MEAN PLATELET VOLUME 9.2 FL (7.4-10.4); PLATELET COUNT 162 /CUMM (130-400); RBC DISTRIBUTION WIDTH 14.6 % (11.5-14.5); RED BLOOD CELL CT 4.18 /CUMM (4.70-6.10); WHITE BLOOD CELL COUNT 8.3 /CUMM (4.8-10.8)
--- NOTE | 2017-10-15 09:52 | PN- Housestaff ---
Romero BRADEN,[facility] 10/15/17 0952: Subjective Follow-up For: huber ramon Subjective: no acute issues overnight. still feeling anxious. Review of Systems Constitutional: Reports: no symptoms. Cardiovascular: Reports: no symptoms. Respiratory: Reports: no symptoms. Gastrointestinal: Reports: no symptoms. Genitourinary: Reports: no symptoms. Musculoskeletal: Reports: no symptoms. Neurological/Psychological: Reports: anxiety. Objective Last 24 Hrs of Vital Signs/I&O Vital Signs Date Time Temp Pulse Resp B/P B/P Pulse O2 O2 Flow FiO2 Mean Ox Delivery Rate 10/15 1354 97.9 75 20 138/80 100 Room Air 10/15 0624 97.9 68 20 120/76 98 Room Air 10/15 0600 97.9 68 20 120/74 10/15 0200 98.0 75 20 130/80 10/14 2211 98.0 80 20 140/80 98 10/14 2200 98.0 80 20 140/80 Intake & Output 10/15 1600 10/15 0800 10/15 0000 Intake Total 800 250 250 Output Total 400 Balance 400 250 250 Intake, IV 10 10 Intake, Oral 800 240 240 Output, Urine 400 Physical Exam General Appearance: Alert, Oriented X3, Cooperative Skin Temp/Moisture Exam: Warm/Dry Cardiovascular: Regular Rate, Normal S1, Normal S2 Lungs: Clear to Auscultation, Normal Air Movement Abdomen: Normal Bowel Sounds, Soft, No Tenderness Extremities: 2+ radial pulse Current Medications: Current Medications Sig/Jackelyn Start time Last Medication Dose Route Stop Time Status Admin Acetaminophen 650 MG Q6P PRN 10/12 1330 AC PO Acetaminophen 1,000 MG Q6P PRN 10/12 1330 IV Enoxaparin Sodium 40 MG DAILY 10/13 1000 AC 10/15 SC 0728 Folic Acid 1 MG DAILY 10/13 1000 AC 10/15 PO 0728 Hydromorphone HCl 0.4 MG Q6P PRN 10/12 1330 AC IV Lorazepam 1 MG Q8 10/15 2200 AC PO Lorazepam 1.5 MG Q8 10/14 1400 DC 10/15 PO 1338 Lorazepam 0 Q1P PRN 10/12 1330 AC 10/12 IV 2007 Multivitamins 1 TAB DAILY 10/13 1000 AC 10/15 PO 0728 Phosphate 250 MG PC AND AT BEDTIME 01/04 2100 AC 10/15 PO 1733 Thiamine HCl 100 MG DAILY 10/13 1000 AC 10/15 PO 0728 Last 24 Hrs of Lab/Anam Results Last 24 Hrs of Labs/Mics: Laboratory Tests 10/15/17 0800: Anion Gap 10, Estimated GFR > 60, BUN/Creatinine Ratio 26.7 H, Total Bilirubin 0.4, Direct Bilirubin 0.2, AST 124 H, ALT 188 H, Alkaline Phosphatase 89, Total Protein 6.6, Albumin 3.9, CBC w Diff NO MAN DIFF REQ, RBC 4.18 L, MCV 98.2 H, MCH 33.7 H, RDW 14.6 H, MPV 9.2, Gran % 70.8, Lymphocytes % 18.3 L, Monocytes % 7.4, Eosinophils % 2.8, Basophils % 0.7, Absolute Granulocytes 5.8, Absolute Lymphocytes 1.5, Absolute Monocytes 0.6, Absolute Eosinophils 0.2, Absolute Basophils 0.1, PUBS MCHC 34.4 Orders CIWA Score (last 24 hrs): 4 Assessment/Plan Assessment: Mr. Verma is a 52-year-old male with PMH of anxiety/panic attacks, alcoholism presented to [facility] with chief complaint of Xanax withdrawl and alcohol dependence for the past week. Problem list #Alcohol withdrawal #Transaminitis likely 2/2 alcohol consumption #Hypokalemia/Hypophosphatemia/Hypomagnesemia 2/2 alcohol consumption Plan - AST/ALT 183/211 trended down to 122/188 on latest lab. Continue monitor - Ativan PO 1.0mg q8 + CIWA protocol. Continue taper as patient improves. - Thiamine/B12/Folic acid supplements - Pain control w/ tylenol/dilaudid, if needed. - Pending social work consult. -Would suggest referral to outpatient substance abuse or dual-diagnosis practitioner -Would not prescribe benzodiazepines at discharge DVT prophylaxis Lovenox + ALPS Regular Diet Full Code Problem List: 1. Benzodiazepine abuse 2. Alcohol abuse Pain Ratin Pain Location: none Pain Goal: Pain 4 or less Pain Plan: pain pathwya Tomorrow's Labs & Rationales: cbc bep CarlotaGarcía isaaccecliia 10/15/17 1140: Attending MD Review Statement Attending Statement Attending MD Statement: examined this patient, discuss w/resident/PA/TRASH MAN, agreed w/resident/PA/TRASH MAN, discussed with family, reviewed EMR data (avail), discussed with nursing, discussed with case mgmt, reviewed images, amended to note Attending Assessment/Plan: 52-year-old male with history of anxiety and panic attacks, alcoholism presents to emergency department complaining of Xanax withdrawal. His CIWA as per nursing. Patient poor historian, Patient is admit to inpatient medical services for alcohol withdrawal. LUKAS <10. Utox negative. Patient has hypokalemia which is replaced. c/w CIWA protocol and Ativan as per CIWA. Taper as per CIWA. Thiamine and folic acid daily for Alcohol abuse and dependence. Nicotine dependence- smokes cigars, smoking cessation advise. f/u FIORELLA and lorie jiang.
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
[2017-10-15 13:54] VITALS: BP 138/80
[2017-10-15 22:07] VITALS: BP 122/70
[2017-10-16] VITALS (9 sets, daily range): BP systolic 120–130; BP diastolic 62–90
--- NOTE | 2017-10-16 07:35 | PN- Housestaff ---
See Addendum Subjective Follow-up For: xanax withdrwal Alcohol Detox Subjective: No overnight event. patient still c/o hand shaking. otherwise no specific complaint. Review of Systems Constitutional: Reports: see HPI. Objective Last 24 Hrs of Vital Signs/I&O Vital Signs Date Time Temp Pulse Resp B/P B/P Pulse O2 O2 Flow FiO2 Mean Ox Delivery Rate 10/16 610 98.6 83 20 126/78 95 Room Air 10/15 2207 98.4 76 20 122/70 96 10/15 1354 97.9 75 20 138/80 100 Room Air Intake & Output 10/16 1600 10/16 0800 10/16 0000 Intake Total 120 240 Output Total Balance 120 240 Intake, Oral 120 240 Physical Exam General Appearance: Alert, Oriented X3, Cooperative, No Acute Distress Cardiovascular: Regular Rate Lungs: Clear to Auscultation, Normal Air Movement Abdomen: Soft, No Tenderness Extremities: No Edema Current Medications: Current Medications Sig/Jackelyn Start time Last Medication Dose Route Stop Time Status Admin Acetaminophen 650 MG Q6P PRN 10/12 1330 AC PO Acetaminophen 1,000 MG Q6P PRN 10/12 1330 AC IV Enoxaparin Sodium 40 MG DAILY 10/13 1000 AC 10/16 SC 0810 Folic Acid 1 MG DAILY 10/13 1000 AC 10/16 PO 0809 Hydromorphone HCl 0.4 MG Q6P PRN 10/12 1330 AC IV Lorazepam 1 MG Q12 10/16 1000 AC PO Lorazepam 1 MG Q8 10/15 2200 DC 10/16 PO 0456 Lorazepam 1.5 MG Q8 10/14 1400 DC 10/15 PO 1338 Lorazepam 0 Q1P PRN 10/12 1330 AC 10/12 IV 2007 Multivitamins 1 TAB DAILY 10/13 1000 AC 10/16 PO 0809 Phosphate 250 MG PC AND AT BEDTIME 10/12 2100 AC 10/16 PO 0809 Thiamine HCl 100 MG DAILY 10/13 1000 AC 10/16 PO 0809 Assessment/Plan Assessment: Mr. Verma is a 52-year-old male with PMH of anxiety/panic attacks, alcoholism presented to [facility] with chief complaint of Xanax withdrawl and alcohol dependence for the past week. Problem list #Alcohol withdrawal #Transaminitis likely 2/2 alcohol consumption #Hypokalemia/Hypophosphatemia/Hypomagnesemia 2/2 alcohol consumption Plan - AST/ALT 183/211 trended down to 124/188 on latest lab. Continue monitor - Tapered to Ativan PO 1.0mg q12 + CIWA protocol. Continue taper as patient improves. - Thiamine/B12/Folic acid supplements - Pain control w/ tylenol/dilaudid, if needed. - Pending social work consult. - Would suggest referral to outpatient substance abuse or dual-diagnosis practitioner - Would not prescribe benzodiazepines at discharge DVT prophylaxis Lovenox + ALPS Regular Diet Full Code Problem List: 1. Alcohol withdrawal syndrome 2. Benzodiazepine abuse Pain Ratin Pain Location: NA Pain Goal: Remain pain free Pain Plan: NA Tomorrow's Labs & Rationales: CBC/BEP
[2017-10-16 10:39] LABS: ABSOLUTE BASOPHIL COUNT 0.1 /CUMM (0.0-0.2); ABSOLUTE EOSINOPHIL COUNT 0.3 /CUMM (0.0-0.7); ABSOLUTE GRANULOCYTE CT 7.1 /CUMM (1.4-6.5); ABSOLUTE LYMPH COUNT 1.6 /CUMM (1.2-3.4); ABSOLUTE MONOCYTE COUNT 0.4 /CUMM (0.10-0.60); BASOPHIL % 0.6 % (0.0-2.0); EOSINOPHIL % 3.1 % (0-5); GRANULOCYTE % 75.6 % (42.2-75.2); MEAN CORPUSCULAR HGB 34.2 PG (27.0-31.0); MEAN CORPUSCULAR HGB CONC 34.6 G/DL (33.0-37.0); MEAN CORPUSCULAR VOLUME 98.8 FL (80.0-94.0); MEAN PLATELET VOLUME 9.1 FL (7.4-10.4); PLATELET COUNT 164 /CUMM (130-400); RBC DISTRIBUTION WIDTH 14.9 % (11.5-14.5); RED BLOOD CELL CT 4.25 /CUMM (4.70-6.10); WHITE BLOOD CELL COUNT 9.4 /CUMM (4.8-10.8)
[2017-10-17] VITALS (8 sets, daily range): BP systolic 120–144; BP diastolic 80–82
--- NOTE | 2017-10-17 07:49 | PN- Housestaff ---
PressleyTwyla 10/17/17 0749: Subjective Follow-up For: xanax withdrwal Alcohol Detox Subjective: No overnight event. CIWA max 3. C/o of some sore throat and skin acne and would want some retinoid cream for it. Acknowledged that he would be discharged today and f.u w/ PCP, and will not pickup drinking again. Review of Systems Constitutional: Reports: see HPI. Objective Last 24 Hrs of Vital Signs/I&O Vital Signs Date Time Temp Pulse Resp B/P B/P Pulse O2 O2 Flow FiO2 Mean Ox Delivery Rate 10/17 705 97.8 78 20 126/80 97 Room Air 10/17 0400 98.4 78 20 120/80 10/17 0311 98.4 78 20 120/80 99 Room Air 10/17 0200 98.4 78 20 120/80 10/17 0000 98.7 88 20 120/80 10/16 2240 98.2 73 20 120/80 98 Room Air 10/16 2000 98.2 73 20 120/80 10/16 1600 98.8 91 20 130/90 10/16 1426 98.8 91 20 130/90 98 Room Air 10/16 1400 98.0 78 14 128/68 10/16 1231 98.4 80 14 128/64 10/16 1000 98.0 80 14 128/70 10/16 0800 98.4 78 14 128/62 Intake & Output 10/17 0800 10/17 0000 10/16 1600 Intake Total 600 1000 Output Total Balance 600 1000 Intake, Oral 600 1000 Patient 81.647 kg Weight Physical Exam General Appearance: Alert, Oriented X3, Cooperative, No Acute Distress Cardiovascular: Regular Rate Current Medications: Current Medications Sig/Jackelyn Start time Last Medication Dose Route Stop Time Status Admin Acetaminophen 650 MG Q6P PRN 10/12 1330 AC PO Acetaminophen 1,000 MG Q6P PRN 10/12 1330 AC IV Enoxaparin Sodium 40 MG DAILY 10/13 1000 AC 10/17 SC 0736 Folic Acid 1 MG DAILY 10/13 1000 AC 10/17 PO 0736 Hydromorphone HCl 0.4 MG Q6P PRN 10/12 1330 AC IV Lorazepam 1 MG 0600,1800 10/16 1800 DC 10/17 PO 0538 Lorazepam 1 MG Q12 10/16 1000 DC PO Lorazepam 0 Q1P PRN 10/12 1330 DC 10/12 IV 2007 Multivitamins 1 TAB DAILY 10/13 1000 AC 10/17 PO 0736 Phosphate 250 MG PC AND AT BEDTIME 10/12 2100 AC 10/17 PO 0736 Thiamine HCl 100 MG DAILY 10/13 1000 AC 10/17 PO 0736 Last 24 Hrs of Lab/Anam Results Last 24 Hrs of Labs/Mics: Laboratory Tests 10/17/17 0725: Sodium Pending, Potassium Pending, Chloride Pending, Carbon Dioxide Pending, Anion Gap Pending, BUN Pending, Creatinine Pending, BUN/Creatinine Ratio Pending , Total Bilirubin Pending, Direct Bilirubin Pending, AST Pending, ALT Pending, Alkaline Phosphatase Pending, Total Protein Pending, Albumin Pending, CBC w Diff Pending, WBC Pending, RBC Pending, Hgb Pending, Hct Pending, MCV Pending, MCH Pending, RDW Pending, Plt Count Pending, MPV Pending, PUBS MCHC Pending Assessment/Plan Assessment: Mr. Verma is a 52-year-old male with PMH of anxiety/panic attacks, alcoholism presented to [place] with chief complaint of Xanax withdrawl and alcohol dependence for the past week. Problem list #Alcohol withdrawal #Transaminitis likely 2/2 alcohol consumption #Hypokalemia/Hypophosphatemia/Hypomagnesemia 2/2 alcohol consumption Plan - AST/ALT 183/211 trended down to 115/217 on latest lab. Continue monitor - Tapered to Ativan PO 1.0mg qd, pending discharge today. - Thiamine/B12/Folic acid supplements. - Pain control w/ tylenol/dilaudid, if needed. - Pending social work consult. - Would suggest referral to outpatient substance abuse or dual-diagnosis practitioner - Would not prescribe benzodiazepines at discharge DVT prophylaxis Lovenox + ALPS Regular Diet Full Code Problem List: 1. Alcoholism Pain Ratin Pain Location: NA Pain Goal: Remain pain free Pain Plan: see AP Tomorrow's Labs & Rationales: John Miranda 10/17/17 1130: Attending MD Review Statement Attending Statement Attending MD Statement: examined this patient, discuss w/resident/PA/MANAGER ORGANIZATIONAL, agreed w/resident/PA/MANAGER ORGANIZATIONAL, discussed with family, reviewed EMR data (avail), discussed with nursing, discussed with case mgmt, reviewed images, amended to note Attending Assessment/Plan: 52-year-old male with history of anxiety and panic attacks, alcoholism presents to emergency department complaining of Xanax withdrawal. His CIWA as per nursing. Patient poor historian, Patient is admit to inpatient medical services for alcohol withdrawal. LUKAS <10. Utox negative. Patient has hypokalemia which is replaced. c/w CIWA protocol and Ativan as per CIWA. Taper as per CIWA. Thiamine and folic acid daily for Alcohol abuse and dependence. Nicotine dependence- smokes cigars, smoking cessation advise. Pysch consulted during the hospital stay with outpatient referral of pyscotherapy and PCP. DC planning to pyshcotherapy and referral to PCP. anticipate dc soon.
[2017-10-17 08:48] LABS: ABSOLUTE BASOPHIL COUNT 0 /CUMM (0.0-0.2); ABSOLUTE EOSINOPHIL COUNT 0.2 /CUMM (0.0-0.7); ABSOLUTE LYMPH COUNT 1.4 /CUMM (1.2-3.4); ABSOLUTE MONOCYTE COUNT 0.9 /CUMM (0.10-0.60); BASOPHIL % 0.5 % (0.0-2.0); EOSINOPHIL % 2.2 % (0-5); GRANULOCYTE % 73.1 % (42.2-75.2); HEMATOCRIT 42.5 % (42-52); MEAN CORPUSCULAR HGB CONC 34.4 G/DL (33.0-37.0); MEAN CORPUSCULAR VOLUME 98.8 FL (80.0-94.0); MEAN PLATELET VOLUME 9.6 FL (7.4-10.4); PLATELET COUNT 166 /CUMM (130-400); RBC DISTRIBUTION WIDTH 14.9 % (11.5-14.5); WHITE BLOOD CELL COUNT 9.5 /CUMM (4.8-10.8)
== END 2017-10-17 11:20 | DRG 775 ==
LOC: ERH 08:08 → 2NA 12:52 → ERHI 12:52 → ENRESERV 10-13 17:48 → ENTRNSPT 10-13 19:16 → EDTRNSPTSTS 10-13 19:19 → EDTRNSPT 10-13 19:19 → 2NA 10-13 19:31 → CMPTRNSPT 10-13 19:49 → ENPENDDIS 10-17 10:09 → ENTRNSPT 10-17 10:58 → EDTRNSPTTYP 10-17 11:11 → EDTRNSPT 10-17 11:11 → CMPTRNSPT 10-17 11:16 → 2NA 10-17 11:20
PROVIDERS: Physician Assistant; Student in an Organized Health Care Education/Training Program
DX: F10.239 Alcohol dependence with withdrawal, unspecified (principal); F10.229 Alcohol dependence with intoxication, unspecified; F19.239 Other psychoactive substance dependence with withdrawal, unspecified; Y90.0 Blood alcohol level of less than 20 mg/100 ml; F41.0 Panic disorder [episodic paroxysmal anxiety]; Z56.0 Unemployment, unspecified; Z59.9 Problem related to housing and economic circumstances, unspecified; E87.6 Hypokalemia; R74.0 Nonspecific elevation of levels of transaminase and lactic acid dehydrogenase [LDH]; D75.89 Other specified diseases of blood and blood-forming organs; E83.39 Other disorders of phosphorus metabolism; E83.42 Hypomagnesemia; Z91.128 Patient's intentional underdosing of medication regimen for other reason; F13.239 Sedative, hypnotic or anxiolytic dependence with withdrawal, unspecified
CPT/HCPCS: 2NASP; 36415; 80307; 82436; 93005; 93010; 96365; 96366; 96375; 99291; G0480; J0131; J1650; J3490; J7060

== ENCOUNTER 2018-02-15 22:56 | Observation (INO) | payer OTHER ==
[~2018-02-15] VITALS: Ht 177.8 cm; Wt 86.2 kg
[2018-02-15 23:00] VITALS: BP 146/88
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
[2018-02-16 00:25] LABS: ABSOLUTE BASOPHIL COUNT 0 /CUMM (0.0-0.2); ABSOLUTE EOSINOPHIL COUNT 0.4 /CUMM (0.0-0.7); ABSOLUTE GRANULOCYTE CT 3.5 /CUMM (1.4-6.5); ABSOLUTE LYMPH COUNT 2.7 /CUMM (1.2-3.4); ABSOLUTE MONOCYTE COUNT 0.4 /CUMM (0.10-0.60); BASOPHIL % 0.5 % (0.0-2.0); GRANULOCYTE % 48.8 % (42.2-75.2); HEMATOCRIT 42.8 % (42-52); MEAN CORPUSCULAR HGB 32.7 PG (27.0-31.0); MEAN CORPUSCULAR VOLUME 93.2 FL (80.0-94.0); MEAN PLATELET VOLUME 8.3 FL (7.4-10.4); PLATELET COUNT 208 /CUMM (130-400); RBC DISTRIBUTION WIDTH 13.4 % (11.5-14.5); RED BLOOD CELL CT 4.59 /CUMM (4.70-6.10); WHITE BLOOD CELL COUNT 7.1 /CUMM (4.8-10.8)
[2018-02-16 00:58] VITALS: BP 129/62
[2018-02-16 03:12] VITALS: BP 119/66
[2018-02-16 04:59] VITALS: BP 117/61
[2018-02-16 06:28] VITALS: BP 114/68
[2018-02-16 08:00] VITALS: BP 115/68
[2018-02-16] MEDS ORDERED: ALPRAZOLAM0.5 M4 PO (08:07)
[2018-02-16] MEDS ORDERED: ATIVAN0.5 M1 PO (09:14)
[2018-02-16 09:28] VITALS: BP 132/63
[2018-02-19] MEDS ORDERED: DOXYCYCLINE HYC50 M1 PO (15:43)
[2018-02-19] MEDS ORDERED: NALTREXONE HCL50 M1 PO (15:43)
[2018-02-19] MEDS ORDERED: MELOXICAM7.5 M1 PO (15:43)
== END 2018-02-16 09:49 ==
LOC: ERH 22:56 → ERHI 02-16 01:06
PROVIDERS: Emergency Medicine
DX: F10.230 Alcohol dependence with withdrawal, uncomplicated (principal); F41.9 Anxiety disorder, unspecified
CPT/HCPCS: 6090; 80307; G0378; G0480

== ENCOUNTER 2018-06-21 22:29 | Emergency (ER) | payer OTHER ==
[~2018-06-21 22:29] MED LIST changes: +ATIVAN0.5 M1 PO; +DOXYCYCLINE HYC50 M1 PO; +MELOXICAM7.5 M1 PO
--- NOTE | 2018-06-22 01:20 | ED PSYCHIATRIC COMPLAINT ---
History of Present Illness General Chief Complaint: ETOH/Drug Related Complaint Stated Complaint: ALCOHOL DETOX Source: patient, old records Exam Limitations: no limitations Vital Signs & Intake/Output Vital Signs & Intake/Output Vital Signs Date Time Temp Pulse Resp B/P B/P Pulse O2 O2 Flow FiO2 Mean Ox Delivery Rate 06/22 0614 98.4 84 18 117/49 06/22 0600 98.4 84 18 117/49 06/22 0600 98.4 84 18 117/49 95 Room Air 06/22 0401 98.2 92 18 132/76 06/22 0401 98.2 92 18 132/76 94 Room Air 06/22 0130 97.9 91 18 135/80 06/22 0130 97.9 91 18 135/80 94 Room Air 06/21 2320 Room Air 06/21 2302 97.8 101 16 122/67 98 Room Air ED Intake and Output 06/22 0000 06/21 1200 Intake Total 0 Output Total Balance 0 Intake, Oral 0 Allergies Coded Allergies: No Known Allergies (05/12/17) Reconcile Medications Alprazolam 0.5 MG TABLET 1 TAB PO TID ANXIETY (Reported) Doxycycline Hyclate 50 MG CAPSULE 1 CAP PO DAILY UNKNOWN (Reported) Lorazepam (Ativan) 0.5 MG TABLET 2 TAB PO TID withdrawal day #1: 2 tab 3x/day Day #2: 1 tab 4x/day Day #3: 1 tab 3x/day Day #4: 1 tab 2x/day Day #5: 1 tab Meloxicam 7.5 MG TABLET 1 TAB PO DAILY PRN PAIN (Reported) Naltrexone HCl 50 MG TABLET 1 TAB PO DAILY UNKNOWN (Reported) Triage Note: PT TO ED STATING HE IS DETOXING FROM ETOH. STATES LAST DRINK THIS AM. REPORTS HEAVY DRINKING DAILY FOR [place] LAST MONTH AFTER HIS DAUGHTER TOLD HIM SHE HATES HIM. DENIES SI/HI. VITALS STABLE IN TRIAGE. PT REPORTS A HX OF WITHDRAWAL SZ. NO TREMORS NOTED IN TRIAGE. Triage Nurses Notes Reviewed? yes Onset: Morning Duration: hour(s):, constant, continues in ED Timing: recent history Severity: moderate Associated Symptoms: anxiety, impaired concentration HPI: Patient reports abuse of alcohol requesting detox due to family discord. Reports a history of having withdrawal seizures of his hands. He reports his last drink was 12 hours prior to admission. He denies fever chills nausea vomiting diarrhea abdominal pain chest pain shortness breath headache dysuria rash bleeding. (You Fish MD) Past History Travel History Traveled to [place] past 21 day No Medical History Any Pertinent Medical History? see below for history Neurological: NONE EENT: NONE Cardiovascular: NONE Respiratory: NONE Gastrointestinal: NONE Hepatic: NONE Renal: NONE Musculoskeletal: NONE Psychiatric: alcohol dependence, anxiety Endocrine: NONE Blood Disorders: NONE Cancer(s): NONE Other Medical Hx: Acne History of MRSA: No History of VRE: No History of CDIFF: No Surgical History Surgical History: none Psychosocial History Who do you live with Mother What is your primary language Nepali Tobacco Use: Refused to answer ETOH Use: heavy use Family History Hx Contributory? No (You Fish MD) Review of Systems Review of Systems Constitutional: Reports: see HPI. EENTM: Reports: no symptoms. Respiratory: Reports: no symptoms. Cardiovascular: Reports: no symptoms. GI: Reports: no symptoms. Genitourinary: Reports: no symptoms. Musculoskeletal: Reports: no symptoms. Skin: Reports: no symptoms. Neurological/Psychological: Reports: no symptoms. Hematologic/Endocrine: Reports: no symptoms. Immunologic/Allergic: Reports: no symptoms. All Other Systems: Reviewed and Negative (You Fish MD) Physical Exam Physical Exam General Appearance: well developed/nourished, alert, awake, anxious, mild distress Head: atraumatic, normal appearance Eyes: Bilateral: normal appearance, PERRL, EOMI. 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 patient not suicidal (You Fish MD) Progress Differential Diagnosis: drug intoxication, drug overdose, drug withdrawal, electrolyte abnormality, hypoglycemia Plan of Care: Orders Procedure Date/time Status Regular Diet 06/22 B Active CIWA 06/22 0046 Active MAGNESIUM 06/22 0046 Complete ETHANOL 06/22 0046 Complete COMPREHENSIVE METABOLIC PANEL 06/22 46 Complete CBC WITHOUT DIFFERENTIAL 06/22 46 Complete CASE MANAGEMENT CONSULT 06/22 46 Active Current Medications Sig/Jackelyn Start time Last Medication Dose Stop Time Status Admin Clonidine 0.1 MG Q8 06/22 0600 UNVr 06/22 (Catapres) 0614 Gabapentin 300 MG Q8 06/22 0600 UNVr 06/22 (Neurontin) 0614 Laboratory Tests 06/22/18 0153: Anion Gap 13, Estimated GFR > 60, BUN/Creatinine Ratio 15.7, Glucose 99, Calcium 8.9, Magnesium 1.7, Total Bilirubin 0.2, AST 100 H, ALT 69, Alkaline Phosphatase 67, Total Protein 6.6, Albumin 4.1, Globulin 2.5, Albumin/Globulin Ratio 1.6, CBC w Diff NO MAN DIFF REQ, RBC 4.57 L, MCV 92.6, MCH 32.9 H, MCHC 35.5, RDW 13.1, MPV 7.7, Gran % 55.1, Lymphocytes % 33.9, Monocytes % 6.0, Eosinophils % 4.5, Basophils % 0.5, Absolute Granulocytes 3.8, Absolute Lymphocytes 2.3, Absolute Monocytes 0.4, Absolute Eosinophils 0.3, Absolute Basophils 0, Serum Alcohol 251.0 Hand-Off Endorsed To: Carol Buchanan MD Endorsed Time: 0700 Pending: other (shaun, case mgmt) (You Fish MD) Comments: 06/22 1029 the patient is awake, alert and oriented. No signs of alcohol withdrawal. Alcohol level should be 0 given his initial blood alcohol level. He has no shakes, no hypertension, no tachycardia. He is comfortable. No diaphoresis. Given his presentation, the patient will be discharged with outpatient facilities for alcohol detox. Emergency room return warnings given and patient verbalizes understanding. Patient is not suicidal homicidal. (Carol Buchanan MD) Departure Departure Disposition: STILL A PATIENT Condition: Stable Clinical Impression Primary Impression: Alcohol dependence with intoxication Qualifiers: Complication of substance-induced condition: with delirium Qualified Code: F10.221 - Alcohol dependence with intoxication delirium Referrals: Deo Solomon MD (PCP/Family) Departure Forms: Customer Survey General Discharge Information (You Fish MD) Departure Time of Disposition: 102 Additional Instructions: Return for any new or concerning symptoms Return immediately for seizure Follow-up with the outpatient facilities for alcohol detox (Dewayne RBADEN,[facility])
[2018-06-22 02:16] LABS: ABSOLUTE BASOPHIL COUNT 0 /CUMM (0.0-0.2); ABSOLUTE EOSINOPHIL COUNT 0.3 /CUMM (0.0-0.7); ABSOLUTE GRANULOCYTE CT 3.8 /CUMM (1.4-6.5); ABSOLUTE LYMPH COUNT 2.3 /CUMM (1.2-3.4); ABSOLUTE MONOCYTE COUNT 0.4 /CUMM (0.10-0.60); BASOPHIL % 0.5 % (0.0-2.0); EOSINOPHIL % 4.5 % (0-5); GRANULOCYTE % 55.1 % (42.2-75.2); HEMATOCRIT 42.3 % (42-52); MEAN CORPUSCULAR HGB 32.9 PG (27.0-31.0); MEAN CORPUSCULAR HGB CONC 35.5 G/DL (33.0-37.0); MEAN CORPUSCULAR VOLUME 92.6 FL (80.0-94.0); MEAN PLATELET VOLUME 7.7 FL (7.4-10.4); PLATELET COUNT 143 /CUMM (130-400); RBC DISTRIBUTION WIDTH 13.1 % (11.5-14.5); RED BLOOD CELL CT 4.57 /CUMM (4.70-6.10); WHITE BLOOD CELL COUNT 6.9 /CUMM (4.8-10.8)
[2018-06-22 10:45] VITALS: BP 132/78
[2018-06-25] MEDS ORDERED: GABAPENTIN300 M2 PO (08:34)
[2018-06-25] MEDS ORDERED: CLONIDINE HCL0.1 MG PO (08:34)
== END 2018-06-22 11:09 ==
LOC: ERH 22:29
PROVIDERS: Emergency Medicine
DX: F10.229 Alcohol dependence with intoxication, unspecified (principal); F41.9 Anxiety disorder, unspecified
CPT/HCPCS: G0480